=== PATIENT | male | born 1995 | race Caucasian/White ===

== ENCOUNTER 2017-08-13 15:03 | Emergency (ER) | payer OTHER ==
[2017-08-13 15:14] VITALS: BP 157/78
--- NOTE | 2017-08-13 16:11 | XRAY Preliminary Report ---
Exam: XR HAND 3 VIEW RT IMPRESSION: No acute fracture or subluxation. [facility] SITE ID: [id number]
--- NOTE | 2017-08-13 16:11 | XRAY Report ---
EXAM: RIGHT HAND RADIOGRAPHY EXAM DATE: 08/13/2017 04:02 PM. CLINICAL HISTORY: Right hand injury. COMPARISON: None. TECHNIQUE: 3 views. FINDINGS: Bones: No acute fracture or bone destruction. Joints: There is no dislocation. Soft Tissues: No soft tissue foreign body. IMPRESSION: No acute fracture or subluxation. [facility] Referring Provider Line: [phone] SITE ID: [id number]
--- NOTE | 2017-08-13 16:15 | ED Physician Documentation ---
PD HPI UPPER EXT INJURY - Stated complaint Stated Complaint: R HAND INJ - Chief complaint Chief Complaint: Ext Problem - History obtained from History obtained from: Patient - History of Present Illness Location: Right, Hand Type of injury: Fall Where injury occurred: Street Timing - onset: How many days ago (4) Worsened by: Moving, Palpating Associated symptoms: Swelling, Discolored. No: Weakness, Numbness - Additonal information Additional information: The patient is a 22-year-old male who presents with pain in his right hand. 4 days ago he was skateboarding when he fell, injuring his right hand. He is right hand dominant. Tetanus status is up-to-date. Review of Systems Constitutional: denies: Fever Respiratory: denies: Dyspnea GI: denies: Abdominal Pain Skin: reports: Abrasion (s) Musculoskeletal: reports: Extremity pain (right hand). denies: Neck pain, Back pain Neurologic: denies: Focal weakness, Numbness, Headache, Head injury PD PAST MEDICAL HISTORY - Present Medications Home Medications: Ambulatory Orders Medication Instructions Recorded Confirmed No Known Home Medications [No 08/13/17 08/13/17 Known Home Medications] - Allergies Allergies/Adverse Reactions: Allergies Allergy/AdvReac Type Severity Reaction Status Date / Time No Known Drug Allergies Allergy Verified 08/13/17 15:14 PD ED PE NORMAL - Vitals Vital signs reviewed: Yes (Systolic hypertension initially.) - General General: Alert and oriented X 3, Well developed/nourished - HEENT HEENT: Atraumatic - Neck Neck: No bony TTP - Respiratory Respiratory: No respiratory distress - Back Back: No spinal TTP - Derm Derm: No rash - Extremities Extremities: Other (There is slight swelling and mild ecchymosis over the dorsal aspect of the right hand at the base of the third and fourth fingers. He has full flexion and extension of the DIP, PIP, and MCP joints against resistance. Distal neurovascular is intact. Further examination reveals a 2 x 3 cm abrasion on the lateral extensor aspect of his right elbow.) - Neuro Neuro: Alert and oriented X 3, No motor deficit, No sensory deficit Results - Vitals Vitals: Oxygen O2 Source Room air - Rads (name of study) Right hand Radiology: Prelim report reviewed, EMP read contemporaneously, See rad report ( No acute fracture or subluxation.) PD MEDICAL DECISION MAKING - ED course Complexity details: reviewed results, re-evaluated patient, considered differential, d/w patient ED course: The patient's presentation is most significant for contusion to the right hand and abrasion to the right elbow. There is no evidence of fracture on x-ray examination of his hand. I discussed with him the expected course of healing, symptomatic treatment and outpatient follow-up, as well as potentially worrisome signs or symptoms that should prompt reevaluation in the emergency department. Departure - Departure Disposition: 01 Home, Self Care Clinical Impression: Contusion of right hand Qualifiers: Encounter type: initial encounter Qualified Code(s): S60.221A - Contusion of right hand, initial encounter Condition: Stable Instructions: ED Contusion Hand Follow-Up: AGUEDA Stewart [Provider Group] Comments: You can use Tylenol or ibuprofen if needed for discomfort. Let pain be your guide to activity level. Follow up with your primary physician within 2 weeks if not improving. Return to the emergency department if you develop increasing pain or swelling, or otherwise worsening symptoms. Discharge Date/Time: 08/13/17 16:26
== END 2017-08-13 16:26 | disposition home or self-care (01) ==
LOC: ED 15:03
DX: S60.221A Contusion of right hand, initial encounter (principal); S50.311A Abrasion of right elbow, initial encounter; V00.131A Fall from skateboard, initial encounter; Y93.51 Activity, roller skating (inline) and skateboarding
CPT/HCPCS: 99282

== ENCOUNTER 2017-12-20 08:50 | Emergency (ER) | payer OTHER ==
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
--- NOTE | 2017-12-20 09:37 | XRAY Report ---
Reason: Pain ulnar hand after punching truck. Procedure Date: 12/20/2017 Accession Number: [id number] / [id number] Procedure: XR - Hand 3 View RT CPT Code: FULL RESULT: EXAM: RIGHT HAND RADIOGRAPHY EXAM DATE: 12/20/2017 09:18 AM. CLINICAL HISTORY: Pain ulnar hand after punching truck. COMPARISON: Hand 3 view right 08/13/2017. TECHNIQUE: 3 views. FINDINGS: [place] dorsally angulated fracture of the fifth metacarpal with medial rotation of the distal fracture fragments, the so-called boxer's fracture. IMPRESSION: Fifth metacarpal fracture. [facility]
[2017-12-20 11:28] LABS: MUDS CUTOFF CONCENTRATIONS CUTOFF CONC BELOW:
[2017-12-20 11:31] VITALS: BP 149/85
[2017-12-20 11:38] LABS: BILIRUBIN,URINE NEGATIVE (NEGATIVE); GLUCOSE, URINE (UA) NEGATIVE (NEGATIVE); KETONES,URINE (UA) TRACE mg/dL (NEGATIVE); LEUKOCYTE ESTERASE, URINE NEGATIVE (NEGATIVE); NITRITE,URINE NEGATIVE (NEGATIVE); OCCULT BLOOD,URINE NEGATIVE (NEGATIVE); PROTEIN,URINE NEGATIVE (NEGATIVE); UROBILINOGEN,URINE 1 (NORMAL) E.U./dL (NORMAL)
[2017-12-20 11:46] LABS: CLARITY,URINE CLEAR (CLEAR)
[2017-12-20 11:47] LABS: AMPHETAMINE SCREEN,URINE NEGATIVE (NEGATIVE); BENZODIAZEPINES SCREEN, URINE NEGATIVE (NEGATIVE); COCAINE SCREEN URINE NEGATIVE (NEGATIVE); METHADONE SCREEN, URINE NEGATIVE (NEGATIVE); METHAMPHETAMINES SCREEN, URINE NEGATIVE (NEGATIVE); OPIATE SCREEN, URINE NEGATIVE (NEGATIVE); OXYCODONE SCREEN, URINE NEGATIVE (NEGATIVE); PROPOXYPHENE SCREEN, URINE NEGATIVE (NEGATIVE); TRICYCLIC ANTIDEPRESSANT,URINE NEGATIVE (NEGATIVE)
[2017-12-20 12:03] LABS: ALBUMIN 4.6 g/dL (3.2-5.5); ALBUMIN/GLOBULIN RATIO 1.1 (1.0-2.2); ALKALINE PHOSPHATASE 91 IU/L (42-121); ALT ALANINE AMINOTRANSFERASE 42 IU/L (10-60); AST ASPARTATE AMINOTRANSFERASE 27 IU/L (10-42); BILIRUBIN,TOTAL 0.8 mg/dL (0.2-1.0); BUN - BLOOD UREA NITROGEN 10 mg/dL (6-20); CALCIUM 9.1 mg/dL (8.5-10.3); CARBON DIOXIDE - CO2 24 mmol/L (21-32); CHLORIDE 101 mmol/L (101-111); CREATININE 0.9 mg/dL (0.6-1.2); GFR - MDRD 104 (>89); GLUCOSE 90 mg/dL (70-100); LIPASE 38 U/L (22-51); SALICYLATE < 6.0 mg/dL; SODIUM 135 mmol/L (135-145); TOTAL PROTEIN 8.6 g/dL (6.7-8.2)
[2017-12-20 12:04] LABS: ACETAMINOPHEN < 10 ug/mL (10-30)
== END 2017-12-20 12:02 | disposition home or self-care (01) ==
LOC: ED 08:50
DX: S62.326A Displaced fracture of shaft of fifth metacarpal bone, right hand, initial encounter for closed fracture (principal); W22.09XA Striking against other stationary object, initial encounter; R45.851 Suicidal ideations
CPT/HCPCS: 29125; 36415; 80053; 80306; 80307; 80320; 80329; 81001; 81003; 83690; 87086; 99283

== ENCOUNTER 2019-11-13 19:51 | Emergency (ER) | payer OTHER ==
[2019-11-13] MEDS ORDERED: HYDROmorphone 1 MG/ML CARPUJECT IM STA (20:42)
[2019-11-13] MEDS ORDERED: DEXAMETHASONE 10 MG/ML VIAL PO STA (20:42)
[2019-11-13] MEDS ORDERED: KETOROLAC 60 MG/2 ML VIAL IM STA (20:42)
[2019-11-13] MEDS ORDERED: CHERRY SYRUP 10 ML UDC PO ONE (20:42)
[2019-11-13] MEDS ORDERED: HYDROcod/ACET 5/325 Prepack 4 PO STA (20:44)
--- NOTE | 2019-11-13 20:44 | ED Physician Documentation ---
PD HPI BACK PAIN - Stated complaint Stated Complaint: BACK PX - Chief complaint Chief Complaint: Back Pain - History obtained from History obtained from: Patient - Additional information Additional information: 24-year-old gentleman with occasional mild back problems has had more severe back pain in the area of the right SI joints and sciatic notch for the last 6 days with radiation of the pain down the back of the right thigh towards the toes with some numbness in the toes. No fevers, chills, incontinence. No history of IV drug use[place]. Review of Systems Constitutional: reports: Reviewed and negative Cardiac: reports: Reviewed and negative Respiratory: reports: Reviewed and negative PD PAST MEDICAL HISTORY - Past Medical History Neuro: Tremors - Past Surgical History Past Surgical History: No - Present Medications Home Medications: Ambulatory Orders Medication Instructions Recorded Confirmed Cyclobenzaprine [Flexeril] 10 mg PO TID PRN #20 tablet 11/13/19 Hydrocodone/Acetaminophen 1 - 2 tab PO Q6H PRN #14 tablet 11/13/19 [Hydrocodone-Acetamin 5-325 mg] predniSONE [Deltasone] 20 mg PO [id number] #21 tab 11/13/19 - Allergies Allergies/Adverse Reactions: Allergies Allergy/AdvReac Type Severity Reaction Status Date / Time No Known Drug Allergies Allergy Verified 12/20/17 09:04 - Social History Does the pt smoke?: Yes Smoking Status: Current every day smoker Does the pt drink ETOH?: Yes Does the pt have substance abuse?: No - Immunizations Immunizations are current?: Yes - POLST Patient has POLST: No PD ED PE NORMAL - Vitals Vital signs reviewed: Yes - General General: Alert and oriented X 3, No acute distress - HEENT HEENT: PERRL, EOMI - Neck Neck: Supple, no meningeal sign, No bony TTP - Extremities Extremities: Other (Tender to the right sciatic notch, mildly diminished sensation in a right L4 distribution with otherwise symmetric reflexes and strength in the lower extremities.) - Neuro Neuro: Alert and oriented X 3, Normal speech Results - Vitals Vitals: Vital Signs - 24 hr 11/13/19 20:00 Temperature 36.9 C Heart Rate 76 Respiratory 18 Rate Blood Pressure 154/80 H O2 Saturation 98 Oxygen O2 Source Room air PD MEDICAL DECISION MAKING - ED course ED course: This patient has seemingly uncomplicated musculoskeletal back pain. The patient has no "red flags." Specifically denies IV drug use, fevers, incontinence, saddle anesthesia. Spinal epidural abscess was considered, given that the patient has no fever, is not diabetic, has no spinal tenderness, does not use IV drugs, and has no bilateral neurologic symptoms, the diagnosis of spinal epidural abscess is considered exceedingly unlikely. Departure - Departure Disposition: 01 Home, Self Care Clinical Impression: Right sided sciatica Condition: Good Record reviewed to determine appropriate education?: Yes Instructions: ED Sciatica Prescriptions: predniSONE [Deltasone] 20 mg PO [id number] #21 tab Cyclobenzaprine [Flexeril] 10 mg PO TID PRN #20 tablet PRN Reason: Spasms Hydrocodone/Acetaminophen [Hydrocodone-Acetamin 5-325 mg] 1 - 2 tab PO Q6H PRN #14 tablet PRN Reason: Pain Comments: Call your doctor to arrange a follow-up appointment, make the next available appointment. In the interim, return anytime if worse or if new symptoms develop. Do not drink or drive while taking narcotic pain medication. Note that many narcotic pain relievers also contain Tylenol/acetaminophen. Please ensure that your total dose of acetaminophen from all sources does not exceed 3 g (3000 mg) per day. You may get constipated while on this medication. Take a stool softener such as Colace twice a day while you are on it. Also add an pvis-nsh-bteayan laxative such as senna or MiraLAX on any day that you do not have a bowel movement. If you received a narcotic pain medication or sedative while in the emergency department, do not drive for the next 24 hours.
[2019-11-13 21:08] VITALS: BP 133/88
== END 2019-11-13 21:07 | disposition home or self-care (01) ==
LOC: ED 19:51
DX: M54.31 Sciatica, right side (principal); F17.200 Nicotine dependence, unspecified, uncomplicated
CPT/HCPCS: 96372; 99283; 99284; A9270; J1170